=== PATIENT | male | born 1995 | race African-American/Black ===

== ENCOUNTER 2017-04-09 00:02 | Emergency (ER) | payer SELFPAY ==
[2017-04-09] MEDS ORDERED: Mag-Al Plus 1200 MG/1200 MG/120 MG/30 ML UDCUP ONE (01:25)
[2017-04-09] MEDS ORDERED: Lidocaine Viscous Sol 2% 15 ml UD Cup ONE (01:25)
[2017-04-09] MEDS ORDERED: Ondansetron ODT 4 MG TAB ONE (01:25)
[2017-04-09 01:43] LABS: #Eosinphils 0.1 thou/uL (0.0-0.7); #Lymphocytes 1.6 thou/uL (1.20-3.40); #Monocytes 0.6 thou/uL (0.11-0.59); #Neutrophils 3.1 thou/uL (1.40-6.50); %Basophils 0.8 % (0.0-1.0); %Eosinophils 2.3 % (0.0-10.0); %Lymphocytes 29.1 % (21.0-51.0); %Monocytes 11.5 % (0.0-10.0); %Neutrophils 56.3 % (42.0-75.0); Mean Corpuscular HGB CONC 32.2 g/dL (32.0-36.0); Mean Corpuscular Hemoglobin 28.2 pg (27.0-31.0); Mean Corpuscular Volume 87.7 fl (80.0-94.0); Mean Platelet Volume 6.6 fL (7.4-10.4); Platelet Count 181 thou/uL (130-400); RBC Distribution Width 11.8 % (11.5-14.5); Red Blood Cell (RBC) Count 4.97 mill/uL (4.70-6.10); White Blood Cell (WBC) Count 5.5 thou/uL (4.8-10.8)
[2017-04-09 02:05] LABS: ALT (SGPT) 13 U/L (8-55); AST (SGOT) 29 U/L (5-34); Albumin 4.1 g/dL (3.5-5.0); Alkaline Phosphatase 49 U/L (40-150); Anion Gap 15 mmol/L (10-20); BUN (Urea Nitrogen) 8 mg/dL (8.9-20.6); Bilirubin, Total 0.4 mg/dL (0.2-1.2); Calc. Creatinine Clearance 0 mL/min (70-130); Calcium 8.9 mg/dL (7.8-10.44); Chloride 99 mmol/L (98-107); Estimated GFR-MDRD Greater than 90; Globulin 2.7 g/dL (2.4-3.5); Glucose 98 mg/dL (70-105); Lipase 18 U/L (8-78); Potassium 3.6 mmol/L (3.5-5.1); Protein, Total 6.8 g/dL (6.0-8.3); Sodium 136 mmol/L (136-145)
[2017-04-09 02:06] LABS: Carbon Dioxide 26 mmol/L (22-29)
== END 2017-04-09 03:03 | disposition home or self-care (01) ==
LOC: NAV ERS 00:02
DX: K29.70 Gastritis, unspecified, without bleeding (principal); F17.210 Nicotine dependence, cigarettes, uncomplicated
CPT/HCPCS: 36415; 80053; 83690; 85025; 93005; Q0162

== ENCOUNTER 2018-03-26 01:33 | Emergency (ER) | payer SELFPAY ==
[2018-03-26] MEDS ORDERED: Adacel (T-DAP) 0.5 ML VIAL ONE (01:41)
[2018-03-26] MEDS ORDERED: Lidocaine 1% w/Epinephrine 1:100K 30 ML VIAL ONE (02:01)
[2018-03-26] MEDS ORDERED: Bacitracin Zinc 1 Packet ONE (02:21)
--- NOTE | 2018-03-26 09:01 | RAD ---
RIGHT FINGER 2 VIEWS: Date: 03/26/18 HISTORY: Laceration right index finger, right index finger pain. FINDINGS/IMPRESSION: No acute fracture or dislocation is seen. No radiopaque foreign bodies are identified. POS: [facility]
== END 2018-03-26 02:30 | disposition home or self-care (01) ==
LOC: NAV ERS 01:33
DX: S61.210A Laceration without foreign body of right index finger without damage to nail, initial encounter (principal); F17.210 Nicotine dependence, cigarettes, uncomplicated; W25.XXXA Contact with sharp glass, initial encounter
CPT/HCPCS: 12001; 90471; 90715; J2001

== ENCOUNTER 2018-04-05 17:16 | Emergency (ER) | payer SELFPAY | END 2018-04-05 17:32 | disposition home or self-care (01) | LOC: NAV ERS 17:16 | DX: S61.210D Laceration without foreign body of right index finger without damage to nail, subsequent encounter (principal); F17.210 Nicotine dependence, cigarettes, uncomplicated; W25.XXXD Contact with sharp glass, subsequent encounter | CPT/HCPCS: 99406 ==

== ENCOUNTER 2018-04-08 15:26 | Emergency (ER) | payer SELFPAY | END 2018-04-08 15:43 | disposition home or self-care (01) | LOC: NAV ERS 15:26 | DX: Z48.02 Encounter for removal of sutures (principal); F17.210 Nicotine dependence, cigarettes, uncomplicated ==

== ENCOUNTER 2021-09-28 20:20 | Emergency (ER) | payer BC, SELFPAY ==
[2021-09-29 15:50] LABS: SARS-CoV-2 PCR by NAA Not Detected (NotDetected)
== END 2021-09-28 20:50 | disposition home or self-care (01) ==
LOC: NAV ERS 20:20
DX: R05.9 Cough, unspecified (principal); Z20.822 Contact with and (suspected) exposure to COVID-19; F17.210 Nicotine dependence, cigarettes, uncomplicated
CPT/HCPCS: 99283; U0003; U0005

== ENCOUNTER 2022-03-05 02:54 | Emergency (ER) | payer OTHER, SELFPAY ==
[2022-03-05 03:11] LABS: #Basophils 0.3 thou/uL (0.0-0.2); #Lymphocytes 3.4 thou/uL (1.20-3.40); #Monocytes 0.6 thou/uL (0.11-0.59); #Neutrophils 5.9 thou/uL (1.40-6.50); %Basophils 2.5 % (0.0-1.0); %Eosinophils 0.2 % (0.0-10.0); %Lymphocytes 33.9 % (21.0-51.0); %Monocytes 5.6 % (0.0-10.0); %Neutrophils 57.8 % (42.0-75.0); Hemoglobin 15.1 g/dL (14.0-18.0); Mean Corpuscular HGB CONC 30.6 g/dL (32.0-36.0); Mean Corpuscular Hemoglobin 28.6 pg (27.0-31.0); Mean Corpuscular Volume 93.3 fL (78.0-98.0); Mean Platelet Volume 8.1 fL (7.4-10.4); Platelet Count 256 thou/uL (130-400); RBC Distribution Width 12.6 % (11.5-14.5); Red Blood Cell (RBC) Count 5.28 mill/uL (4.70-6.10); White Blood Cell (WBC) Count 10.1 thou/uL (4.8-10.8)
[2022-03-05] MEDS ORDERED: Boostrix 0.5 ML (Tdap) VIAL ONE (03:11)
[2022-03-05 03:17] LABS: INR-International Normal Ratio 1.1; Prothrombin Time 14.2 sec (12.0-14.7)
[2022-03-05 03:18] LABS: PTT 27.2 sec (22.9-36.1)
[2022-03-05 03:24] LABS: ALT (SGPT) 15 U/L (8-55); AST (SGOT) 21 U/L (5-34); Albumin 4.9 g/dL (3.5-5.0); Alkaline Phosphatase 57 U/L (40-110); Anion Gap 24 mmol/L (10-20); BUN (Urea Nitrogen) 15 mg/dL (8.9-20.6); Bilirubin, Total 0.3 mg/dL (0.2-1.2); Calc. Creatinine Clearance 0 mL/min (70-130); Calcium 8.9 mg/dL (7.8-10.44); Carbon Dioxide 20 mmol/L (22-29); Chloride 104 mmol/L (98-107); Globulin 2.8 g/dL (2.4-3.5); Glucose 133 mg/dL (70-105); Potassium 3.5 mmol/L (3.5-5.1); Protein, Total 7.7 g/dL (6.0-8.3); Sodium 144 mmol/L (136-145)
[2022-03-05] MEDS ORDERED: Ondansetron PF 4 MG/2 ML Vial ONE (03:24)
[2022-03-05] MEDS ORDERED: Morphine 4 MG/ML VIAL ONE (03:24)
[2022-03-05] MEDS ORDERED: CEFAZOLIN 1 GM VIAL ONE (04:31)
[2022-03-05] MEDS ORDERED: Sodium Chloride 0.9% 100 ML ONE (04:31)
[2022-03-05] MEDS ORDERED: Sodium Chloride 0.9% 1,000 ML ONE (04:31)
[2022-03-05] MEDS ORDERED: Iopamidol 370 76% 100 ML VIAL ONE (09:00)
== END 2022-03-05 05:20 | disposition short-term general hospital (02) ==
LOC: NAV ERS 02:54
DX: S41.012A Laceration without foreign body of left shoulder, initial encounter (principal); S00.212A Abrasion of left eyelid and periocular area, initial encounter; F10.129 Alcohol abuse with intoxication, unspecified; R00.0 Tachycardia, unspecified; F17.210 Nicotine dependence, cigarettes, uncomplicated; W26.8XXA Contact with other sharp object(s), not elsewhere classified, initial encounter; Y90.8 Blood alcohol level of 240 mg/100 ml or more; Z23 Encounter for immunization
CPT/HCPCS: 71045; 71260; 80053; 80307; 82550; 85025; 85610; 85730; 90715; 94760; 96361; 96365; 96375; J0690; J2270; J2405; J3490; J7050; Q9967

== ENCOUNTER 2022-03-14 08:35 | Emergency (ER) | payer SELFPAY ==
[2022-03-14] MEDS ORDERED: Bacitracin 1 PK ONE (09:14)
== END 2022-03-14 09:20 | disposition home or self-care (01) ==
LOC: NAV ERS 08:35
DX: S41.012D Laceration without foreign body of left shoulder, subsequent encounter (principal); F17.210 Nicotine dependence, cigarettes, uncomplicated; X58.XXXD Exposure to other specified factors, subsequent encounter
CPT/HCPCS: 99282

== ENCOUNTER 2022-07-30 19:30 | Emergency (ER) | payer BC, SELFPAY ==
[~2022-07-30 19:30] MED LIST: Iopamidol 370 76% 100 ML VIAL ONE
[2022-07-30] MEDS ORDERED: HYDROcodone/Acetaminophen 5/325 mg Tablet ONE (20:38)
[2022-07-30] MEDS ORDERED: Dexamethasone 4 MG TAB ONE (20:39)
[2022-07-30] MEDS ORDERED: Aspirin Chewable 81 MG TAB ONE (20:39)
[2022-07-30 20:50] LABS: #Basophils 0.1 thou/uL (0.0-0.2); #Eosinphils 0.3 thou/uL (0.0-0.7); #Lymphocytes 2.8 thou/uL (1.20-3.40); #Monocytes 0.9 thou/uL (0.11-0.59); #Neutrophils 5.8 thou/uL (1.40-6.50); %Basophils 1.4 % (0.0-1.0); %Eosinophils 2.9 % (0.0-10.0); %Lymphocytes 28.1 % (21.0-51.0); %Monocytes 9.1 % (0.0-10.0); %Neutrophils 58.5 % (42.0-75.0); Hemoglobin 15.1 g/dL (14.0-18.0); Mean Corpuscular HGB CONC 32.1 g/dL (32.0-36.0); Mean Corpuscular Hemoglobin 29.3 pg (27.0-31.0); Mean Corpuscular Volume 91.5 fL (78.0-98.0); Mean Platelet Volume 7.6 fL (7.4-10.4); Platelet Count 210 thou/uL (130-400); RBC Distribution Width 12.7 % (11.5-14.5); Red Blood Cell (RBC) Count 5.17 mill/uL (4.70-6.10); White Blood Cell (WBC) Count 9.9 thou/uL (4.8-10.8)
[2022-07-30 21:01] LABS: ALT (SGPT) 14 U/L (8-55); AST (SGOT) 15 U/L (5-34); Albumin 4.2 g/dL (3.5-5.0); Alkaline Phosphatase 54 U/L (40-110); Anion Gap 15 mmol/L (10-20); BUN (Urea Nitrogen) 15 mg/dL (8.9-20.6); Bilirubin, Total 0.7 mg/dL (0.2-1.2); Calc. Creatinine Clearance 0 mL/min (70-130); Calcium 8.6 mg/dL (7.8-10.44); Carbon Dioxide 26 mmol/L (22-29); Chloride 102 mmol/L (98-107); Estimated GFR 93; Globulin 2.4 g/dL (2.4-3.5); Glucose 85 mg/dL (70-105); Protein, Total 6.6 g/dL (6.0-8.3); Sodium 139 mmol/L (136-145)
== END 2022-07-30 22:55 | disposition home or self-care (01) ==
LOC: NAV ERS 19:30
DX: R07.2 Precordial pain (principal); F17.210 Nicotine dependence, cigarettes, uncomplicated
CPT/HCPCS: 71046; 71275; 80053; 84484; 85025; 85379; 93005; J8540; Q9967